=== PATIENT | female | born 1985 | race Caucasian/White ===

== ENCOUNTER 2016-06-20 10:51 | Emergency (ER) | payer OTHER ==
[~2016-06-20] VITALS: Ht 157.5 cm; Wt 115.2 kg
[2016-06-20] MEDS ORDERED: GABA-279 PO (11:04)
[2016-06-20] MEDS ORDERED: TRAZ150T14 PO (11:04)
[2016-06-20] MEDS ORDERED: EFFE75CA75 PO (11:04)
[2016-06-20] MEDS ORDERED: AMBI10TA PO (11:04)
[2016-06-20 13:15] VITALS: BP 143/88
== END 2016-06-20 13:19 | disposition home or self-care (01) ==
LOC: M ED 12:20
DX: F43.10 Post-traumatic stress disorder, unspecified (principal); Z79.899 Other long term (current) drug therapy; Z88.5 Allergy status to narcotic agent

== ENCOUNTER 2016-07-24 10:59 | Inpatient (IN) | payer OTHER ==
[~2016-07-24] VITALS: Ht 160 cm; Wt 117.2 kg
[~2016-07-24 10:59] MED LIST: AMBI10TA PO; EFFE75CA75 PO; GABA-279 PO; TRAZ150T14 PO
[2016-07-24] MEDS ORDERED: OLAN5TAB PO (11:39)
[2016-07-24] MEDS ORDERED: VYVA50CH PO (11:39)
[2016-07-24] MEDS ORDERED: MINI2CAP PO (11:39)
[2016-07-24] MEDS ORDERED: TRAZ100T4 PO (11:39)
[2016-07-24] MEDS ORDERED: EFFE37.527 PO (11:39)
[2016-07-24] MEDS ORDERED: XANA1TAB2 PO (11:39)
[2016-07-24 12:09] LABS: MEAN CORPUSCULAR HEMOGLOBIN 31.1 pg (27.0-33.0); MEAN CORPUSCULAR VOLUME 91.3 fl (80.0-96.0); WHITE BLOOD COUNT 10.1 K/mm3 (4.0-10.0)
[2016-07-24 12:13] LABS: CONTROL LINE HCG INT CTR LINE PRESENT
[2016-07-24 12:31] LABS: ALBUMIN 3.8 GM/DL (3.2-5.2); ALBUMIN/GLOBULIN RATIO 1.06 (1.00-1.93); ALKALINE PHOSPHATASE 87 U/L (45-117); ALT/SGPT 31 U/L (12-78); ANION GAP 7 MEQ/L (8-16); AST/SGOT 19 U/L (15-37); BILIRUBIN,DIRECT < 0.1 MG/DL (0.0-0.2); BILIRUBIN,TOTAL 0.3 MG/DL (0.2-1.0); BLOOD UREA NITROGEN 9 MG/DL (7-18); CALCIUM LEVEL 8.8 MG/DL (8.5-10.1); CARBON DIOXIDE LEVEL 24 MEQ/L (21-32); CHLORIDE LEVEL 108 MEQ/L (98-107); CREATININE FOR GFR 0.96 MG/DL (0.55-1.02); GLOMERULAR FILTRATION RATE > 60.0 (>60); GLUCOSE, FASTING 82 MG/DL (70-105); POTASSIUM SERUM 4.2 MEQ/L (3.5-5.1); SODIUM LEVEL 139 MEQ/L (136-145); TOTAL PROTEIN 7.4 GM/DL (6.4-8.2)
[2016-07-24 12:32] LABS: METHADONE URINE NEGATIVE (NEGATIVE)
[2016-07-24] MEDS ORDERED: TRAZ150T14 PO (13:14)
[2016-07-24] MEDS ORDERED: SYNT88TA2 PO (13:14)
[2016-07-24] MEDS ORDERED: EFFE150C PO (13:14)
[2016-07-24] MEDS ORDERED: VYVA50CA PO (13:14)
[2016-07-24] MEDS ORDERED: FIBE62TA PO (13:14)
[2016-07-24] MEDS ORDERED: IBUP40TA PO (13:14)
[2016-07-24] MEDS: PRAZOSIN 1 MG CAP PO SCH (21:00)
[2016-07-24] MEDS: VENLAFAXINE **XR** 75MG CAPSULE PO SCH (21:00)
[2016-07-24] MEDS ORDERED: OLANZapine 5 MG TAB PO SCH (21:00)
[2016-07-24] MEDS: FIBER-CON 625 MG TAB PO SCH (21:00)
[2016-07-24 21:45] VITALS: BP 164/109
[2016-07-24] MEDS ORDERED: MAALOX 30 ML SUSP *UDC PO PRN (23:45)
[2016-07-24] MEDS ORDERED: IBUPROFEN 400 MG TAB PO PRN (23:45)
[2016-07-24] MEDS ORDERED: MOM 30ML SUSPENSION UDC PO PRN (23:45)
[2016-07-24] MEDS ORDERED: LORazepam 1 MG TAB PO PRN (23:45)
[2016-07-25] MEDS: LEVOTHYROXINE 0.088 MG TAB (88 MCG) PO SCH (05:46)
[2016-07-25 06:46] VITALS: BP 149/88
[2016-07-25] MEDS: raNITIdine SYRUP 150 MG/10 ML UDC PO SCH (08:15)
[2016-07-25] MEDS ORDERED: OLANZapine 2.5MG TABLET PO SCH (09:00)
--- NOTE | 2016-07-25 09:02 | HPEPDOC ---
Medical History and Physical Date of Admission July 24, 2016 at 18:00 History and Physical PCP: Dr Lind ATTENDING: Dr. Luca Adams HPI: 30yoF admitted to [facility] for depressive disorder, being medically examined today. Patient states she was treated approximately 2 weeks ago for respiratory illness, she completed course of amoxicillin one week ago. She states her symptoms are resolving. She has occasional nonproductive cough. No fevers or chills. Denies any weakness, fatigue, DAVE, CP, SOB, palpitations, abdominal pain , N/V/D or changes in bowel or bladder habits. PMHx: Hypothyroid PTSD Anxiety Depression Insomnia Chronic headache PSHX: Denies SOCHX: Resides in: [facility] Marital Status: from Kids: her has one child Employment: Full-time administration manager at [employer] Tobacco use: Denies ETOH: Denies Illicit Drugs: Marijuana daily. Previous use of cocaine, methamphetamine, heroin. Patient states last used the 6 years ago. IV Drug Use: History of heroin Tattoos done unprofessionally: Denies FAMHX: Mother: Alive, degenerative disc disease Father: Alive, history of substance use, mental health issues Siblings: One sister Alive, well Children: None Unexpected deaths due to medical reasons: None. ROS: As noted in HPI, otherwise 11pt ROS of systems reviewed and remarkable only for LMP 06/25/16 PE: GEN: 30 yo F, appears stated age. Well-nourished, well developed. No acute distress. Alert and oriented x 3. Pleasant, interactive. HEENT: Normocephalic, atraumatic. Pupils are equal, round, and reactive to light. Extraocular movements are intact. No nystagmus appreciated. Sclera are nonicteric. Conjunctiva without injection. Nose midline. Nasal turbinates without bogginess. EACs both patent BL. TMs both visualized and cole with good cone of light, no bulging or erythema. No facial asymmetry. Moist mucous membranes. Dentition fair. Pharynx pink and moist, no cobblestoning. Neck supple , trachea midline. No lymphadenopathy or thyromegaly appreciated. CHEST: Regular rate and rhythm, +S1, +S2 LUNGS: Clear to auscultation bilaterally. No wheezes, rales, or rhonchi. Breathing appears symmetric and easy. Patient is speaking in full sentences. No accessory muscle use. ABD: Round, soft, non-tender, non-distended. +Bowel sounds throughout. No rebound or guarding. No costovertebral angle tenderness. EXT: Pulses 2+ bilaterally dorsalis pedis and radial. No lower extremity edema appreciated. SKIN: [place], dry, warm. Capillary refill <2sec. No rashes. NEURO: Alert and oriented x 3. Cranial nerves III-XII are intact. No focal deficits appreciated. EKG: Pending A&P: 30yoF admitted to [facility] for depressive disorder 1. Psych. Plan per Psychiatry.Obtain baseline EKG to assure the safety of psychiatric medications as they can prolong the QT interval. 2. Hypothyroidism. Continue supplement. TSH is noted to be elevated. Recheck TFT in a.m. 3. Leukocytosis, mild. Patient afebrile. Asymptomatic. Recheck CBC in a.m. 4. Follow up with PCP on discharge. 5. Substance use. Per psychiatry. 6. Chronic headaches. Patient states is controlled with Tylenol or ibuprofen as needed. 7. Obesity. BMI noted to be 45.8. Complicates care. 8. History of IVDU. Patient states HIV/hepatitis screening approximately 6 months ago was negative. Declines rescreening. Maryam AGUIRRE present throughout exam. Vital Signs Vital Signs Date Time Temp Pulse Resp B/P (MAP) Pulse Ox O2 Delivery O2 Flow Rate FiO2 07/25/16 06:46 98.5 75 16 149/88 (108) 07/24/16 21:46 96 Room Air Laboratory Data Labs 24H Laboratory Tests 2 07/24/16 11:50: Anion Gap 7L, Glomerular Filtration Rate > 60.0, Calcium Level 8.8, Aspartate Amino Transf (AST/SGOT) 19, Alanine Aminotransferase (ALT/SGPT) 31, Alkaline Phosphatase 87, Total Bilirubin 0.3, Direct Bilirubin < 0.1, Total Protein 7.4, Albumin 3.8, Albumin/Globulin Ratio 1.06, Thyroid Stimulating Hormone (TSH) 8.990H, Human Chorionic Gonadotropin, Qual NEGATIVE, Salicylates Level 3.0L, Acetaminophen Level < 2.0L, Ethyl Alcohol Level < 0.003 07/24/16 12:09: Urine Amphetamines Screen POSITIVEH, Urine Benzodiazepines Screen POSITIVEH, Urine Opiates Screen NEGATIVE, Urine Methadone Screen NEGATIVE, Urine Barbiturates Screen NEGATIVE, Urine Phencyclidine Screen NEGATIVE, Urine Cocaine Metabolite Screen NEGATIVE, Urine Cannabinoids Screen POSITIVEH CBC/BMP Laboratory Tests 07/24/16 11:50 Red Blood Count 4.57, Mean Corpuscular Volume 91.3, Mean Corpuscular Hemoglobin 31.1, Mean Corpuscular Hemoglobin Concent 34.0, Red Cell Distribution Width 13.0 Home Medications Scheduled (Vyvanse) 50 Mg Cap, 50 MG PO QHS Calcium Polycarbophil (Fiber-Lax) 1 Ea Tab, 1 EA PO QHS Levothyroxine Sodium (Synthroid) 88 Mcg Tab, 88 MCG PO QHS Olanzapine (Olanzapine) 5 Mg Tab, 5 MG PO QHS Prazosin HCl (Minipress) 2 Mg Cap, 2 MG PO QHS Trazodone HCl (Trazodone HCl) 150 Mg Tab, 150 MG PO QHS Venlafaxine Hydrochloride (Effexor Xr) 150 Mg Cap, 150 MG PO QHS Zolpidem Tartrate (Ambien) 10 Mg Tab, 10 MG PO QHS Scheduled PRN Alprazolam (Xanax) 1 Mg Tab, 1 MG PO TID PRN for ANXIETY/AGITATION Ibuprofen (Ibuprofen) 400 Mg Tab, 400 MG PO QID PRN for PAIN Allergies Coded Allergies: Codeine (Verified Allergy, Unknown, 06/20/16) Dia Patricio July 25, 2016 09:02
[2016-07-25 12:01] VITALS: BP 129/74
[2016-07-25 15:58] LABS: CHOLESTEROL LEVEL 165 MG/DL (<200); TRIGLYCERIDES LEVEL 132 MG/DL (<150)
[2016-07-25 18:00] VITALS: BP 142/85
[2016-07-25] MEDS: PRAZOSIN 1 MG CAP PO SCH (20:19)
[2016-07-25] MEDS: traZODone 50 MG TAB PO PRN (20:19)
[2016-07-25] MEDS: VENLAFAXINE **XR** 75MG CAPSULE PO SCH (20:19)
[2016-07-25] MEDS: FIBER-CON 625 MG TAB PO SCH (20:20)
[2016-07-25] MEDS ORDERED: VYVANSE 50 MG PO SCH (21:00)
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
[2016-07-26] MEDS: LEVOTHYROXINE 0.088 MG TAB (88 MCG) PO SCH (06:13)
[2016-07-26 06:44] VITALS: BP 154/86
[2016-07-26 07:49] LABS: MEAN CORPUSCULAR HEMOGLOBIN 31.3 pg (27.0-33.0); MEAN CORPUSCULAR HGB CONC 33.3 g/dl (32.0-36.5); MEAN CORPUSCULAR VOLUME 94.1 fl (80.0-96.0)
[2016-07-26 08:20] LABS: THYROXINE (T4) 7.1 UG/DL (4.5-12.0)
[2016-07-26] MEDS: raNITIdine SYRUP 150 MG/10 ML UDC PO SCH (08:32)
[2016-07-26 12:00] VITALS: BP 140/95
[2016-07-26 13:00] VITALS: BP 132/77
[2016-07-26 17:00] VITALS: BP 136/78
[2016-07-26] MEDS: traZODone 50 MG TAB PO PRN (20:37)
[2016-07-26] MEDS: VENLAFAXINE **XR** 75MG CAPSULE PO SCH (20:37)
[2016-07-26 20:38] VITALS: BP 138/92
[2016-07-26] MEDS: PRAZOSIN 1 MG CAP PO SCH (20:38)
[2016-07-26] MEDS: FIBER-CON 625 MG TAB PO SCH (20:38)
[2016-07-26 21:00] VITALS: BP 145/85
--- NOTE | 2016-07-26 22:01 | MHIPNPDOC ---
[facility] Progress Note Progress Note DATE OF SERVICE: 07/26/16 INTERVAL HISTORY: Medication Side effects: the patient reports no side effects from her aripiprazole Behavior/events: has been more social and engaged today and yesterday. Has been speaking to her partner. Her partner has been ported be pressuring her to return home due to her child's birthday libertarian tomorrow. Group Attendance: attended group one today but was unable to tolerate due to severe anxiety Psychiatric Symptoms: reports that her anxiety and depression are becoming increasingly better controlled she felt "great" today is the start of aripiprazole. She described that she was ambivalent about staying she wanted to be at her daughter's birthday libertarian but want to stay for medication titration. The patient described that after speaking to her partner that she wanted to go tomorrow. She states she was feeling much improved with their aripiprazole and the discontinuation of several for highly stimulating medication. She additionally appreciated the education on her medications. VITAL SIGNS: See below. NEW TEST RESULTS: See below CURRENT MEDICATIONS: See below. MENTAL STATUS EXAMINATION: General: Well dressed with good hygiene Speech: Spontaneous and fluid Thought processes: Linear and logical Thought content: future orientated Abstract reasoning, and computation: Intact Description of associations: Intact Description of abnormal or psychotic thoughts:Denies any suicidal or homicidal ideation. Denies any auditory or visual hallucinations. Does not appear to be responding to internal stimuli. Does not appear to be endorsing any bizarre or paranoid ideation. Judgment: fair Insight: improving Orientation: Alert and orientated 3 Recent and remote memory: Intact Attention span and concentration: Intact Fund of knowledge: Adequate Mood: "good" Affect: Euthymic with a full range DIAGNOSES: 1. PTSD, acute. 2. Borderline personality disorder. 3. Cannabis use disorder, severe, in controlled setting. ASSESSMENT: improving on aripiprazole MANAGEMENT PLAN: Medications: continue aripiprazole and increased to 5 mg at night. Discontinue Vyvanse and Ativan. Decreased than the venlafaxine down to 75 mg QHS. Psychotherapy: encourage group therapy Social: discharge tomorrow Misc: spoke to partner about dispo Disposition: The patient will need of further inpatient stay to address disposition and medication titration. TIME SPENT: 45 minutes. Vital Signs Vital Signs Date Time Temp Pulse Resp B/P (MAP) Pulse Ox O2 Delivery O2 Flow Rate FiO2 07/26/16 20:38 138/92 07/26/16 17:00 98.4 59 16 Room Air 07/24/16 21:46 96 Laboratory Data 24H Labs Laboratory Tests 2 07/26/16 07:30: Thyroid Stimulating Hormone (TSH) 9.160H, Free Thyroxine Index 2.1, Thyroxine ( T4) 7.1, Triiodothyronine (T3) Uptake 29L CBC/BMP Laboratory Tests 07/26/16 07:30 Red Blood Count 4.53, Mean Corpuscular Volume 94.1, Mean Corpuscular Hemoglobin 31.3, Mean Corpuscular Hemoglobin Concent 33.3, Red Cell Distribution Width 13.0 Current Medications Current Medications Al Hydrox/Mg Hydrox/Simethicone (Mylanta) 30 ml Q4HP PRN PO HEARTBURN/ INDIGESTION; Start 07/24/16 at 23:45; Stop 08/23/16 at 23:44 Aripiprazole (AbiLIFY) 2.5 mg QHS PO Last administered on 07/26/16 20:37; Start 07/25/16 at 21:00; Stop 08/24/16 at 20:59 Calcium Polycarbophil (Fiber Con) 1 ea QHS PO Last administered on 07/26/16 20 :38; Start 07/24/16 at 21:00; Stop 08/23/16 at 20:59 Home Med (Med Rec Complete!) ASDIRECTED XX ; Start 07/24/16 at 13:15; Stop at 13:18; Status DC Ibuprofen (Advil) 400 mg QIDP PRN PO PAIN Last administered on 07/26/16 19:00 ; Start 07/24/16 at 23:45; Stop 08/23/16 at 23:44 Levothyroxine Sodium (Synthroid) 0.088 mg DAILY@06 PO Last administered on 07/26 06:13; Start 07/25/16 at 06:00; Stop 08/24/16 at 05:59 Lorazepam (Ativan) 1 mg Q6HP PRN PO ANXIETY/AGITATION Last administered on 07/25 08:15; Start 07/24/16 at 23:45; Stop 07/31/16 at 23:44 Magnesium Hydroxide (Milk Of Magnesia) 30 ml DAILYPRN PRN PO CONSTIPATION; Start 07/24/16 at 23:45; Stop 08/23/16 at 23:44 Miscellaneous (Unresolved Patient Own Med Order) SEE LABEL COMMENTS UNRESOLVED XX ; Start 07/25/16 at 00:01; Stop 08/24/16 at 00:00 Olanzapine (ZyPREXA) 5 mg QHS PO ; Start 07/24/16 at 21:00; Stop 07/25/16 at 08: 41; Status DC Olanzapine (ZyPREXA) 7.5 mg BID PO Last administered on 07/25/16 09:10; Start 07/25/16 at 09:00; Stop 07/25/16 at 15:22; Status DC Patient Own Medication (Patient'S Own Med) 1 ea QHS PO ; Start 07/25/16 at 21:00 ; Stop 08/24/16 at 20:59; Status UNV Prazosin HCl (Minipress) 2 mg QHS PO Last administered on 07/26/16 20:38; Start 07/24/16 at 21:00; Stop 08/23/16 at 20:59 Ranitidine HCl (Zantac) 150 mg DAILY PO Last administered on 07/26/16 08:32; Start 07/25/16 at 09:00; Stop 08/24/16 at 08:59 Trazodone HCl (Desyrel) 50 mg QHSP PRN PO INSOMNIA Last administered on 20:37; Start 07/24/16 at 23:45; Stop 08/23/16 at 23:44 Venlafaxine HCl (Effexor Xr) 150 mg QHS PO Last administered on 07/26/16 20:37; Start 07/24/16 at 21:00; Stop 08/23/16 at 20:59 Allergies Coded Allergies: Codeine (Verified Allergy, Unknown, 06/20/16) GME ATTESTATION My preceptor for this patient encounter was physically present in the building during the encounter and was fully available. As needed, all aspects of the patient interview, examination, medical decision making process, and medical care plan development were reviewed and approved by the preceptor. Preceptor is aware and concurs with the plan as stated in the body of this note and will attest to such by his/her cosignature. CHRISTOPHER CHILDERS DO July 26, 2016 22:01
[2016-07-27] MEDS: LEVOTHYROXINE 0.088 MG TAB (88 MCG) PO SCH (06:02)
[2016-07-27 06:34] VITALS: BP 143/60
[2016-07-27] MEDS: raNITIdine SYRUP 150 MG/10 ML UDC PO SCH (08:26)
[2016-07-27] MEDS ORDERED: VENL75CA PO (09:28)
[2016-07-27] MEDS ORDERED: ARIP5TA PO (09:28)
[2016-07-27] MEDS ORDERED: MINI1CAP PO (09:30)
[2016-07-27] MEDS ORDERED: ARIP10TAB PO (10:03)
--- NOTE | 2016-07-27 14:23 | ECGEPIP ---
Stationary ECG Study [facility] Test Date: 2016-07-25 Pat Name: BONNY SOLIZ Department: Room: [place] [address] Gender: F Poultry Raiser: AUTUMN : 1985 Requested By: Dia Patricio Order Number: [id number] Reading MD: Colin Jade Measurements Intervals [place] Rate: 64 P: 49 FL: 151 QRS: 85 QRSD: 110 T: 62 QT: 385 QTc: 399 Interpretive Statements SINUS RHYTHM WITH SINUS ARRHYTHMIA Within normal limits for age Electronically Signed On 07-27-2016 14:22:42 EDT by Colin Jade
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
[2016-07-27] MEDS ORDERED: VENLAFAXINE **XR** 75MG CAPSULE PO SCH (21:00)
== END 2016-07-27 11:30 | disposition home or self-care (01) | DRG 755 ==
LOC: M ED 11:51 → M ED INP 18:00 → M PSY 21:50
PROVIDERS: ADMIT Psychiatry & Neurology Psychiatry; ATTEND Psychiatry & Neurology Psychiatry
DX: F43.10 Post-traumatic stress disorder, unspecified (principal); Z68.42 Body mass index [BMI] 45.0-49.9, adult; F60.3 Borderline personality disorder; F12.90 Cannabis use, unspecified, uncomplicated; Z79.899 Other long term (current) drug therapy; Z88.5 Allergy status to narcotic agent; E03.9 Hypothyroidism, unspecified; G47.00 Insomnia, unspecified; E66.9 Obesity, unspecified; R51 Headache; D72.829 Elevated white blood cell count, unspecified

== ENCOUNTER → 2019-07-02 | Outpatient (CLI) | payer OTHER ==
[~2019-07-02] MED LIST changes: +ARIP1TAB PO; +ARIP1TAB6 PO; +EFFE150C2 PO; +EFFE37.5 PO; +EFFE75CA2 PO; -EFFE75CA75 PO; +FIBE62TA PO; +GABA-1171 PO; -GABA-279 PO; +IBUP40TA PO; +MINI1CAP PO; +MINI2CAP PO; +OLAN5TAB PO; +SYNT88TA2 PO; +TRAZ-257 PO; -TRAZ150T14 PO; +TRAZ1TAB14 PO; +VENL75CA2 PO; +VYVA50CA4 PO; +VYVA50CH PO; +XANA1TAB2 PO
--- NOTE | 2019-07-08 03:42 | ECWPNPC ---
PATIENT NAME: BONNY SOLIZ : 1985 GENDER: FEMALE VISIT DATE: 07/02/2019 DISCHARGE DATE: 07/02/19 0000 VISIT LOCKED DATE TIME: PHYSICIAN: SHARRON TRNA MD RESOURCE: SHARRON TRAN MD REASON FOR APPOINTMENT 1. PRE-SEDATE HISTORY OF PRESENT ILLNESS HISTORY OF PRESENT ILLNESS: PAIN THE PATIENT DESCRIBES THE PAIN... 33 YEAR OLD FEMALE PATIENT WITH A HISTORY OF NEUROLOGICAL CHANGES AND MIGRAINES. THE PATIENT WAS SEEN BY NEUROLOGY DUE TO A LESION OVER RIGHT EYE AND WAS REFERRED TO US BY DR. 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 THE PATIENT IS HERE TODAY FOR A PRE-SEDATION PHYSICAL. THE PATIENT SAYS HER MIGRAINES ARE SEVERE AND SHE NEEDS TO LAY DOWN AND PLACE ICE PACKS OVER HER EYES FOR RELIEF. THE PATIENT DENIES UNEXPLAINED WEIGHT LOSS, FEVER, CHILLS, NEW CHANGES IN HER URINARY OR BOWEL CONTROL. FALL RISK SCREENING: SCREENING :NO FALLS REPORTED IN THE LAST YEAR CURRENT MEDICATIONS TAKING TRAZODONE HCL 150 MG TABLET 1/2 TABLET AT BEDTIME ORALLY BEFORE BEDTIME TAKING AMBIEN 10 MG TABLET 1 TABLET AT BEDTIME NEEDED ORALLY ONCE A DAY TAKING OMEPRAZOLE 40 MG CAPSULE DELAYED RELEASE 1 CAPSULE 30 MINUTES BEFORE MORNING MEAL ORALLY BID TAKING MELOXICAM 10 MG CAPSULE 1 CAPSULE ORALLY BID, NOTES: NOT SURE OF DOSE TAKING LEVOTHYROXINE SODIUM 150 MCG TABLET 1 TABLET IN THE MORNING ON AN EMPTY STOMACH ORALLY ONCE A DAY TAKING LATUDA 80 MG TABLET 1 TAB ORALLY DAILY MEDICATION LIST REVIEWED AND RECONCILED WITH THE PATIENT PAST MEDICAL HISTORY DIFFICULTY SLEEPING ANXIETY/DEPRESSION BIPOLAR D/O HYPOTHYROIDISM MIGRAINES ALLERGIES CODEINE PHOSPHATE: N/V HOT SWEATS - ALLERGY SURGICAL HISTORY DENIES PAST SURGICAL HISTORY FAMILY HISTORY FATHER: ALIVE MOTHER: ALIVE 1 SISTER(S) . SOCIAL HISTORY GENERAL: TOBACCO USE ARE YOU A:NONSMOKER LATEX QUESTIONNAIRE LATEX ALLERGY : HAVE YOU EVER DEVELOPED ANY TYPE OF REACTION AFTER HANDLING LATEX PRODUCTS SUCH RUBBER GLOVES, CONDOMS, DIAPHRAGMS, BALLOONS, SOCKS, OR UNDERWEAR?NO LATEX ALLERGY : HAVE YOU EVER DEVELOPED ANY TYPE OF REACTION DURING OR AFTER DENTAL APPOINTMENT, VAGINAL/RECTAL EXAMINATION, SURGICAL PROCEDURE, OR ANY OTHER EXPOSURE?NO LATEX RISK : HAVE YOU EVER HAD ANY DIFFICULTY BREATHING OR HIVES AFTER EATING OR HANDLING ANY FRUITS, OR VEGETABLES; SUCH KIWI, BANANAS, STONE FRUITS, OR CHESTNUTSNO LATEX RISK : DO YOU HAVE A PREVIOUS PERSONAL HISTORY OF MORE THAN NINE SURGERIES, SPINA BIFIDA, OR REPEATED CATHERIZATIONS? NO LATEX RISK : ARE YOU FREQUENTLY EXPOSED TO LATEX PRODUCTS IN YOUR OCCUPATION?NO DATE ASKED : 07/02/2019 ORTHODOX [id number] OTHER LEARNING BARRIERS / SPECIAL NEEDS BARRIERS TO LEARNING?NO HEARING IMPAIRED?NO VISION IMPAIRED?YES :CORRECTIVE LENSES COGNITIVELY IMPAIRED?NO READINESS TO LEARN?YES LEARNING PREFERENCES?NO LEARNING CAPABILITIES PRESENT?YES EMOTIONAL BARRIERS?NO SPECIAL DEVICES?NO NEW PATIENT PAIN DIARY TODAY'S VISIT 07/02/19 FROM 0-10, WHAT LEVEL IS YOUR PAIN TODAY?0 PAIN CLINIC PFS, CLERGY, PUBLIC HEALTH REFERRALS HAS THE PATIENT BEEN EDUCATED REGARDING HIS/HER PLAN OF CARE?YES HAS THE PATIENT BEEN EDUCATED REGARDING PAIN, THE RISK FOR PAIN, THE IMPORTANCE OF EFFECTIVE PAIN MANAGEMENT, AND THE PAIN ASSESSMENT PROCESS?YES ADVANCE DIRECTIVE ADVANCE DIRECTIVE DISCUSSED WITH PATIENT:YES DECLINED HCP HOSPITALIZATION/MAJOR DIAGNOSTIC PROCEDURE MRSA 2014 REVIEW OF SYSTEMS REVIEWED BY: PROVIDER: SHARRON TRAN MD . CONSTITUTIONAL: ANY CHANGE IN YOUR MEDICAL CONDITION? EXCESS FLUID IN EYE CANALS (PAPILLEDEMA) . CHILLS NO . FEVER NO . INFECTION: DO YOU HAVE NEW INFECTIONS? NO . DO YOU HAVE HISTORY OF MRSA? YES, ALL OVER SKIN WAS HOSPITALIZED FOR THIS . MUSCULOSKELETAL: ANY NEW PATTERNS OF PAIN OR NUMBNESS? NO . GASTROENTEROLOGY: ANY NEW CHANGE IN BOWEL CONTROL? NO . GENITOURINARY: ANY NEW CHANGE IN BLADDER CONTROL? NO . IS THERE A CHANCE YOU COULD BE ? NO . HEMATOLOGY/LYMPH: DO YOU TAKE ANY BLOOD THINNERS? (FOR EXAMPLE- COUMADIN, PLAVIX, AGGRENOX, PLATEL, PRADAXA, OR XARELTO) NO . WHEN WAS YOUR LAST DOSE? DATE: TIME: . NEUROLOGY: HAVE YOU FALLEN IN THE PAST 12 MONTHS? YES, FELL DOWN ICY STEPS, PT DENIES INJURIES . ANY NEW EXTREMITY NUMBNESS OR WEAKNESS? NO . CARDIOLOGY: DO YOU HAVE A PACEMAKER OR DEFIBRILLATOR? NO . RESPIRATORY: HAVE YOU BEEN SICK IN THE PAST WEEK? NO . FEVER NO . FLU LIKE SYMPTOMS? NO . COUGH NO . INTEGUMENTARY: DO YOU HAVE ANY RASHES OR OPEN SORES? YES, RASH ON BILAT FEET TAKING ATHLETE FOOT CREAM FOR THIS . ALLERGIC/IMMUNO: ARE YOU ALLERGIC TO IV DYE? NO . ANY NEW ALLERGIES? NO . PSYCHIATRIC: DO YOU HAVE THOUGHTS OF HURTING YOURSELF OR SOMEONE ELSE? NO . ARE YOU ABUSED, NEGLECTED, OR IN AN UNSAFE ENVIRONMENT? NO . ENDOCRINOLOGY: ARE YOU DIABETIC? NO . OTHER: DO YOU NEED ANY PRESCRIPTIONS? NO . IF YES, PLEASE LIST: ____ . ANY NEW PROBLEMS WITH YOUR MEDICATIONS? NO . WHEN DID YOU LAST EAT? ____ . WHEN DID YOU LAST DRINK? ____ . WHAT DID YOU LAST DRINK? ____ . NAME OF PERSON DRIVING YOU HOME? ____ . DO YOU HAVE ANY OTHER QUESTIONS OR CONCERNS NO . VITAL SIGNS WT 342.8 LBS, HT 45 IN, BMI 119.01 INDEX, BP 178/81 MM HG, HR 117 /MIN, RR 20 /MIN, TEMP 96.5 F, OXYGEN SAT % 96%, SAFE IN ENV? (Y/N) Y, NA INITIALS AW 1427, REVIEWED BY: CASSIE. EXAMINATION GENERAL EXAMINATION: PATIENT IS ALERT O X 3 AND COOPERATIVE. LUNGS CLEAR, TO AUSCULTATION. HEART: NO MURMURS OR GALLOPS; FACIAL CRANIAL NERVES ARE GROSSLY NORMAL. GOOD SYMMETRY OF FACIAL MUSCLE MOVEMENT. NORMAL VISUAL MARIANO. NOTE FROM DR. DE LEON IS PRESENT IN PATIENT'S CHART. 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 TREATMENT NEUROLOGICAL SYMPTOMS CLINICAL NOTES: WE DISCUSSED SEVERAL ISSUES WITH MS. SOLIZ'S CASE. THE PATIENT WILL COME IN FOR A SPINAL TAP IN THE NEXT FEW WEEKS. WE DISCUSSED THE BENEFITS, RISKS, AND ALTERNATIVES OF THE INJECTION AND THE PATIENT WOULD LIKE TO PROCEED. INSTRUCTIONS WERE GIVEN, QUESTIONS WERE ANSWERED, PATIENT REPORTS UNDERSTANDING AND AGREES WITH THE PLAN. I, DAVID CHAHAL, DOCUMENTED THE ABOVE INFORMATION ACTING A SCRIBE FOR DR. TRAN. I HAVE REVIEWED THE ABOVE DOCUMENT, WRITTEN BY DAVID ROWLEY AND I VERIFY THAT IT IS ACCURATE. PROCEDURE CODES G8427 CURRENT MEDS W/DOSAGES DOCUMENTED G8730 PAIN ASSESS POS TOOL F/U PLAN DOC FA211 ESTABILISHED PATIENT [facility] FACILITY CHARGE DISPOSITION & COMMUNICATION FOLLOW UP 1 WEEK ELECTRONICALLY SIGNED BY SHARRON TRAN MD, MD ON 07/07/2019 AT 01:07 PM EDT DISCLAIMER : THIS IS A VISIT SUMMARY EXTRACTED FROM THE [email or web address] CHART. IT IS NOT A COPY OF THE [email or web address] PROGRESS NOTE. MTDD
== END ==
LOC: M PAIN 14:15
PROVIDERS: ATTEND Anesthesiology
DX: R29.90 Unspecified symptoms and signs involving the nervous system (principal); Z86.69 Personal history of other diseases of the nervous system and sense organs; E03.9 Hypothyroidism, unspecified; F32.9 Major depressive disorder, single episode, unspecified; F41.9 Anxiety disorder, unspecified; Z79.899 Other long term (current) drug therapy; Z88.5 Allergy status to narcotic agent

== ENCOUNTER → 2019-07-05 | Outpatient (CLI) | payer OTHER | LOC: M LABSMTC 09:49 | PROVIDERS: ATTEND Anesthesiology | DX: Z01.818 Encounter for other preprocedural examination (principal); Z11.59 Encounter for screening for other viral diseases ==

== ENCOUNTER → 2019-07-08 | Outpatient (CLI) | payer OTHER ==
[~2019-07-08] MED LIST changes: +LIDOCAINE 1% SDV 30ML VIAL As Ordered ONE; +MIDAZOLAM INJ 2MG/2ML VIAL (J2250 PER 1MG) As Ordered ONE; +ONDANSETRON 4MG/2ML VIAL As Ordered ONE; +fentaNYL 100 MCG/2 ML INJECTION (J3010) As Ordered ONE
[2019-07-08 14:05] LABS: APPEARANCE, CSF CLEAR (CLEAR); COLOR, CSF COLORLESS (COLORLESS)
[2019-07-08 14:06] LABS: CSF TUBE# CELL CNT TUBE 1
[2019-07-08 14:31] LABS: CSF TUBE# GLU TUBE 1; CSF TUBE# TP TUBE 1; GLUCOSE CSF 52 MG/DL (40-75); TOTAL PROTEIN,CSF 28 MG/DL (15-45)
--- NOTE | 2019-07-10 02:06 | ECWPNPC ---
PATIENT NAME: BONYN SOLIZ : 1985 GENDER: FEMALE VISIT DATE: 07/08/2019 DISCHARGE DATE: 07/08/19 1421 VISIT LOCKED DATE TIME: PHYSICIAN: SHARRON TRAN MD RESOURCE: SHARRON TRAN MD REASON FOR APPOINTMENT 1. SPINAL TAP W/ IV SEDATION. HISTORY OF PRESENT ILLNESS HISTORY OF PRESENT ILLNESS: 33-YEAR-OLD FEMALE PATIENT WITH A HISTORY OF NEUROLOGICAL CHANGES AND MIGRAINES. THE PATIENT WAS REFERRED HERE BY DR. 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 THE PATIENT WAS MADE AWARE OF AND AGREED TO THE RISKS ASSOCIATED WITH THE PROCEDURE. THE PATIENT IS COVID-19 NEGATIVE. PAIN THE PATIENT DESCRIBES THE PAIN... FALL RISK SCREENING: SCREENING :NO FALLS REPORTED IN THE LAST YEAR CURRENT MEDICATIONS TAKING TRAZODONE HCL 150 MG TABLET 1/2 TABLET AT BEDTIME ORALLY BEFORE BEDTIME, NOTES: 07/06 1929 TAKING AMBIEN 10 MG TABLET 1 TABLET AT BEDTIME NEEDED ORALLY ONCE A DAY, NOTES: 07/06 1929 TAKING OMEPRAZOLE 40 MG CAPSULE DELAYED RELEASE 1 CAPSULE 30 MINUTES BEFORE MORNING MEAL ORALLY BID, NOTES: 07/06 1929 TAKING MELOXICAM 10 MG CAPSULE 1 CAPSULE ORALLY BID, NOTES: 07/06 1929 TAKING LEVOTHYROXINE SODIUM 150 MCG TABLET 1 TABLET IN THE MORNING ON AN EMPTY STOMACH ORALLY ONCE A DAY, NOTES: 07/06 1929 TAKING LATUDA 80 MG TABLET 1 TAB ORALLY DAILY, NOTES: 07/06 1929 TAKING XANAX 1 MG TABLET 1 TABLET ORALLY ONCE DAILY NEEDED, NOTES: 07/06 1929 MEDICATION LIST REVIEWED AND RECONCILED WITH THE PATIENT PAST MEDICAL HISTORY DIFFICULTY SLEEPING ANXIETY/DEPRESSION BIPOLAR D/O HYPOTHYROIDISM MIGRAINES MRSA ALLERGIES CODEINE PHOSPHATE: N/V HOT SWEATS - ALLERGY SURGICAL HISTORY NO SURGICAL HISTORY DOCUMENTED. FAMILY HISTORY FATHER: ALIVE, ALCOHOLIC AND DRUG ABUSE, DEPRESSION AND OTHER MENTAL ISSUES, DIAGNOSED WITH SUBSTANCE ABUSE, OTHER SPECIFIED CONDITIONS INFLUENCING HEALTH STATUS MOTHER: ALIVE, DIABETES, HYPERTENSION 1 SISTER(S) - HEALTHY. SOCIAL HISTORY GENERAL: TOBACCO USE ARE YOU A:NONSMOKER LATEX QUESTIONNAIRE LATEX ALLERGY : HAVE YOU EVER DEVELOPED ANY TYPE OF REACTION AFTER HANDLING LATEX PRODUCTS SUCH RUBBER GLOVES, CONDOMS, DIAPHRAGMS, BALLOONS, SOCKS, OR UNDERWEAR?NO LATEX ALLERGY : HAVE YOU EVER DEVELOPED ANY TYPE OF REACTION DURING OR AFTER DENTAL APPOINTMENT, VAGINAL/RECTAL EXAMINATION, SURGICAL PROCEDURE, OR ANY OTHER EXPOSURE?NO LATEX RISK : HAVE YOU EVER HAD ANY DIFFICULTY BREATHING OR HIVES AFTER EATING OR HANDLING ANY FRUITS, OR VEGETABLES; SUCH KIWI, BANANAS, STONE FRUITS, OR CHESTNUTSNO LATEX RISK : DO YOU HAVE A PREVIOUS PERSONAL HISTORY OF MORE THAN NINE SURGERIES, SPINA BIFIDA, OR REPEATED CATHERIZATIONS? NO LATEX RISK : ARE YOU FREQUENTLY EXPOSED TO LATEX PRODUCTS IN YOUR OCCUPATION?NO DATE ASKED : 07/08/2019 ALCOHOL SCREENING DID YOU HAVE A DRINK CONTAINING ALCOHOL IN THE PAST YEAR?YES HOW OFTEN DID YOU HAVE A DRINK CONTAINING ALCOHOL IN THE PAST YEAR?MONTHLY OR LESS (1 POINT) HOW MANY DRINKS DID YOU HAVE ON A TYPICAL DAY WHEN YOU WERE DRINKING IN THE PAST YEAR?1 OR 2 (0 POINTS) HOW OFTEN DID YOU HAVE SIX OR MORE DRINKS ON ONE OCCASION IN THE PAST YEAR?NEVER (0 POINTS) POINTS1 INTERPRETATIONNEGATIVE RECREATIONAL DRUG USE DRUG USE?YES HOW OFTEN AND HOW MUCH? MARIJUANA-1 BOWL NIGHTLY CAFFEINE CAFFEINE USE?NO ADVENTISM [id number] OTHER LANGUAGE LANGUAGES SPOKEN:GERMAN EDUCATION LEVEL OF EDUCATION:FINISHED COLLEGE LEARNING BARRIERS / SPECIAL NEEDS BARRIERS TO LEARNING?NO HEARING IMPAIRED?NO VISION IMPAIRED?YES :CORRECTIVE LENSES COGNITIVELY IMPAIRED?NO READINESS TO LEARN?YES LEARNING PREFERENCES?NO LEARNING CAPABILITIES PRESENT?YES EMOTIONAL BARRIERS?NO SPECIAL DEVICES?NO HOGSHEAD MAT INSPECTOR NEEDED?NO DOMESTIC VIOLENCE DO YOU FEEL SAFE IN YOUR ENVIRONMENT?YES OCCUPATION: STAY AT HOME PARENT. NEW PATIENT PAIN DIARY TODAY'S VISIT 07/08/2019 FROM 0-10, WHAT LEVEL IS YOUR PAIN TODAY?0 PAIN CLINIC PFS, CLERGY, PUBLIC HEALTH REFERRALS HAS THE PATIENT BEEN EDUCATED REGARDING HIS/HER PLAN OF CARE?YES HAS THE PATIENT BEEN EDUCATED REGARDING PAIN, THE RISK FOR PAIN, THE IMPORTANCE OF EFFECTIVE PAIN MANAGEMENT, AND THE PAIN ASSESSMENT PROCESS?YES ADVANCE DIRECTIVE ADVANCE DIRECTIVE DISCUSSED WITH PATIENT:YES 07/08/2019 PT DOES NOT HAVE ANY ADVANCED DIRECTIVES AND SHE DECLINES INFORMATION ON HCP AT THIS TIME. AD HOSPITALIZATION/MAJOR DIAGNOSTIC PROCEDURE MRSA 2014 REVIEW OF SYSTEMS REVIEWED BY: PROVIDER: SHARRON TRAN MD . CONSTITUTIONAL: ANY CHANGE IN YOUR MEDICAL CONDITION? NO . CHILLS NO . FEVER NO . INFECTION: DO YOU HAVE NEW INFECTIONS? NO . DO YOU HAVE HISTORY OF MRSA? YES, >4 YEARS AGO . MUSCULOSKELETAL: ANY NEW PATTERNS OF PAIN OR NUMBNESS? NO . GASTROENTEROLOGY: ANY NEW CHANGE IN BOWEL CONTROL? NO . GENITOURINARY: ANY NEW CHANGE IN BLADDER CONTROL? NO . IS THERE A CHANCE YOU COULD BE ? NO . HEMATOLOGY/LYMPH: DO YOU TAKE ANY BLOOD THINNERS? (FOR EXAMPLE- COUMADIN, PLAVIX, AGGRENOX, PLATEL, PRADAXA, OR XARELTO) NO . WHEN WAS YOUR LAST DOSE? DATE: TIME: . NEUROLOGY: HAVE YOU FALLEN IN THE PAST 12 MONTHS? YES,SLIPPED ON ICY OUTDOOR STAIRS > 6 MONTHS AGO-NO MAJOR INJUIES, JUST SORE AFTER . ANY NEW EXTREMITY NUMBNESS OR WEAKNESS? NO . CARDIOLOGY: DO YOU HAVE A PACEMAKER OR DEFIBRILLATOR? NO . RESPIRATORY: HAVE YOU BEEN SICK IN THE PAST WEEK? NO . FEVER NO . FLU LIKE SYMPTOMS? NO . COUGH NO . INTEGUMENTARY: DO YOU HAVE ANY RASHES OR OPEN SORES? NO . ALLERGIC/IMMUNO: ARE YOU ALLERGIC TO IV DYE? NO . ANY NEW ALLERGIES? NO . PSYCHIATRIC: DO YOU HAVE THOUGHTS OF HURTING YOURSELF OR SOMEONE ELSE? NO . ARE YOU ABUSED, NEGLECTED, OR IN AN UNSAFE ENVIRONMENT? NO . ENDOCRINOLOGY: ARE YOU DIABETIC? NO . OTHER: DO YOU NEED ANY PRESCRIPTIONS? NO . IF YES, PLEASE LIST: ____ . ANY NEW PROBLEMS WITH YOUR MEDICATIONS? NO . WHEN DID YOU LAST EAT? 07/06 2114 . WHEN DID YOU LAST DRINK? 07/07 929 . WHAT DID YOU LAST DRINK? SIP OF WATER . NAME OF PERSON DRIVING YOU HOME? DALE DOZIER . DO YOU HAVE ANY OTHER QUESTIONS OR CONCERNS NO . VITAL SIGNS WT 342.8 LBS, HT 45 IN, BMI 119.01 INDEX, BP 150/74 MM HG, HR 109 /MIN, RR 20 /MIN, TEMP 96.0 F, OXYGEN SAT % 97%, NA INITIALS AW 1033. ASSESSMENTS NEUROLOGICAL SYMPTOMS - R29.90 (PRIMARY) HISTORY OF MIGRAINE - Z86.69 TREATMENT NEUROLOGICAL SYMPTOMS CLINICAL NOTES: WE DISCUSSED SEVERAL ISSUES WITH MS. SOLIZ CASE. THE PATIENT IS HERE TODAY FOR A SPINAL TAP THAT WAS ORDERED BY HER NEUROLOGIST. WE DISCUSSED THE BENEFITS, RISKS, AND ALTERNATIVES OF THE INJECTION AND THE PATIENT WOULD LIKE TO PROCEED. INSTRUCTIONS WERE GIVEN, QUESTIONS WERE ANSWERED, PATIENT REPORTS UNDERSTANDING AND AGREES WITH THE PLAN. KATY Bishop, DOCUMENTED THE ABOVE INFORMATION ACTING A SCRIBE FOR DR. TRAN. I HAVE REVIEWED THE ABOVE DOCUMENT, WRITTEN BY AMRIK OCHOA, AND I VERIFY THAT IT IS ACCURATE. OTHERS CLINICAL NOTES: SPINAL TAP WITH IV SEDATION-PLEASE SEE MEDITECH. PROCEDURE CODES [id number] LUMBAR PUNCTURE [id number] MOD SED SAME PHYS/QHP 5/>YRS [address] MOD SED SAME PHYS/[place] [id number] MOD SED SAME PHYS/QHP EA DISPOSITION & COMMUNICATION FOLLOW UP F/UP WITH NEUROLOGIST ELECTRONICALLY SIGNED BY SHARRON TRAN MD, MD ON 07/09/2019 AT 09:42 AM EDT DISCLAIMER : THIS IS A VISIT SUMMARY EXTRACTED FROM THE [employer] CHART. IT IS NOT A COPY OF THE [employer] PROGRESS NOTE. KJ
== END ==
LOC: M PAIN 10:15
PROVIDERS: ATTEND Anesthesiology
DX: R29.90 Unspecified symptoms and signs involving the nervous system (principal); Z86.69 Personal history of other diseases of the nervous system and sense organs; Z79.899 Other long term (current) drug therapy; Z88.5 Allergy status to narcotic agent
CPT/HCPCS: 36415; 62270; 82784; 82945; 83916; 84157; 87070; 87102; 87205; 87252; 87483; 88108; 88313; 89050; 99152; 99153; J2250; J2405; J3010